=== PATIENT | male | born 1950 | race Caucasian/White ===

== ENCOUNTER 2016-12-10 08:00 | Outpatient (CLI) | payer BC | END 2016-12-10 23:59 | disposition home or self-care (01) | LOC: LAB.S 08:00 | PROVIDERS: ATTEND Internal Medicine | DX: I81 Portal vein thrombosis (principal) | CPT/HCPCS: 85610 ==

== ENCOUNTER 2016-12-12 09:21 | Outpatient (CLI) | payer BC | END 2016-12-12 09:22 | disposition home or self-care (01) | LOC: LAB.F 09:21 | PROVIDERS: ATTEND Internal Medicine | DX: I81 Portal vein thrombosis (principal) | CPT/HCPCS: 85610 ==

== ENCOUNTER 2016-12-17 10:00 | Outpatient (CLI) | payer BC | END 2016-12-17 23:59 | disposition home or self-care (01) | LOC: LAB.S 10:00 | PROVIDERS: ATTEND Internal Medicine | DX: I81 Portal vein thrombosis (principal) | CPT/HCPCS: 85610 ==

== ENCOUNTER 2016-12-21 09:08 | Outpatient (CLI) | payer BC | END 2016-12-21 09:09 | disposition home or self-care (01) | LOC: LAB.F 09:08 | PROVIDERS: ATTEND Internal Medicine | DX: I81 Portal vein thrombosis (principal) | CPT/HCPCS: 85610 ==

== ENCOUNTER 2016-12-27 09:22 | Outpatient (CLI) | payer BC | END 2016-12-27 09:23 | disposition home or self-care (01) | LOC: LAB.F 09:22 | PROVIDERS: ATTEND Internal Medicine | DX: I81 Portal vein thrombosis (principal) | CPT/HCPCS: 85610 ==

== ENCOUNTER 2017-01-03 09:49 | Outpatient (CLI) | payer BC | END 2017-01-03 09:50 | disposition home or self-care (01) | LOC: LAB.F 09:49 | PROVIDERS: ATTEND Internal Medicine | DX: I81 Portal vein thrombosis (principal) | CPT/HCPCS: 85610 ==

== ENCOUNTER 2017-01-17 08:50 | Outpatient (CLI) | payer BC | END 2017-01-17 08:51 | disposition home or self-care (01) | LOC: LAB.F 08:50 | PROVIDERS: ATTEND Internal Medicine | DX: I81 Portal vein thrombosis (principal) | CPT/HCPCS: 85610 ==

== ENCOUNTER 2017-02-07 08:32 | Outpatient (CLI) | payer BC | END 2017-02-07 08:33 | disposition home or self-care (01) | LOC: LAB.F 08:32 | PROVIDERS: ATTEND Internal Medicine | DX: I81 Portal vein thrombosis (principal) | CPT/HCPCS: 85610 ==

== ENCOUNTER 2017-03-08 08:52 | Outpatient (CLI) | payer BC | END 2017-03-08 08:53 | disposition home or self-care (01) | LOC: LAB.F 08:52 | PROVIDERS: ATTEND Internal Medicine | DX: I81 Portal vein thrombosis (principal) | CPT/HCPCS: 85610 ==

== ENCOUNTER 2017-04-08 08:00 | Outpatient (CLI) | payer BC | END 2017-04-08 08:01 | disposition home or self-care (01) | LOC: LAB.S 08:00 | PROVIDERS: ATTEND Internal Medicine | DX: I81 Portal vein thrombosis (principal) | CPT/HCPCS: 85610 ==

== ENCOUNTER 2017-05-07 09:24 | Outpatient (CLI) | payer BC | END 2017-05-07 09:25 | disposition home or self-care (01) | LOC: LAB.F 09:24 | PROVIDERS: ATTEND Internal Medicine | DX: I81 Portal vein thrombosis (principal) | CPT/HCPCS: 85610 ==

== ENCOUNTER 2017-06-04 13:14 | Outpatient (CLI) | payer BC | END 2017-06-04 13:15 | disposition home or self-care (01) | LOC: LAB.F 13:14 | PROVIDERS: ATTEND Internal Medicine | DX: I81 Portal vein thrombosis (principal) | CPT/HCPCS: 85610 ==

== ENCOUNTER 2017-07-04 09:40 | Outpatient (CLI) | payer BC | END 2017-07-04 09:41 | disposition home or self-care (01) | LOC: LAB.F 09:40 | PROVIDERS: ATTEND Internal Medicine | DX: I81 Portal vein thrombosis (principal) | CPT/HCPCS: 85610 ==

== ENCOUNTER 2017-07-25 04:34 | Outpatient (CLI) | payer BC | END 2017-07-25 04:35 | disposition short-term general hospital (02) | LOC: EMS 04:34 | PROVIDERS: ATTEND Surgery | DX: K92.0 Hematemesis (principal); Z79.01 Long term (current) use of anticoagulants | CPT/HCPCS: A0170; A0425; A0427 ==

== ENCOUNTER 2018-05-20 06:02 | Outpatient (CLI) | payer MEDICARE, BC | END 2018-05-20 06:03 | disposition short-term general hospital (02) | LOC: EMS 06:02 | PROVIDERS: ATTEND Surgery | DX: R10.9 Unspecified abdominal pain (principal) | CPT/HCPCS: A0170; A0425; A0427 ==

== ENCOUNTER 2021-01-19 10:12 | Outpatient (CLI) | payer MEDICARE, OTHER | END 2021-01-19 10:13 | disposition short-term general hospital (02) | LOC: EMS 10:12 | DX: R41.0 Disorientation, unspecified (principal); R42 Dizziness and giddiness; H53.2 Diplopia; R40.0 Somnolence | CPT/HCPCS: A0425; A0429 ==

== ENCOUNTER 2021-02-03 10:35 | Outpatient (CLI) | payer MEDICARE, OTHER ==
[2021-02-03 15:07] LABS: CALCIUM 8.6 mg/dL (8.5-10.3); CREATININE 0.8 mg/dL (0.6-1.2); POTASSIUM 4.2 mmol/L (3.5-5.0)
== END 2021-02-03 10:36 | disposition home or self-care (01) ==
LOC: LAB.S 10:35
PROVIDERS: ATTEND Internal Medicine
DX: C15.5 Malignant neoplasm of lower third of esophagus (principal); K70.31 Alcoholic cirrhosis of liver with ascites
CPT/HCPCS: 36415; 80048; 82378; 82728; 83540; 84466

== ENCOUNTER 2021-02-13 10:29 | Outpatient (CLI) | payer MEDICARE, OTHER | END 2021-02-13 10:30 | disposition short-term general hospital (02) | LOC: EMS 10:29 | DX: K92.1 Melena (principal); R53.1 Weakness; R42 Dizziness and giddiness | CPT/HCPCS: A0425; A0427 ==

== ENCOUNTER 2021-04-10 10:11 | Outpatient (CLI) | payer MEDICARE, OTHER | END 2021-04-10 10:12 | disposition short-term general hospital (02) | LOC: EMS 10:11 | DX: R10.9 Unspecified abdominal pain (principal); R11.0 Nausea; R53.1 Weakness; R26.81 Unsteadiness on feet | CPT/HCPCS: A0425; A0429 ==

== ENCOUNTER 2021-04-21 13:04 | Outpatient (CLI) | payer MEDICARE, BC | END 2021-04-21 13:05 | disposition short-term general hospital (02) | LOC: EMS 13:04 | DX: R41.82 Altered mental status, unspecified (principal) | CPT/HCPCS: A0425; A0427 ==

== ENCOUNTER 2021-05-03 08:47 | Outpatient (CLI) | payer MEDICARE, BC | END 2021-05-03 08:48 | disposition short-term general hospital (02) | LOC: EMS 08:47 | DX: R19.5 Other fecal abnormalities (principal) | CPT/HCPCS: A0425; A0427 ==

== ENCOUNTER 2021-05-09 13:57 | Outpatient (CLI) | payer MEDICARE, BC ==
[2021-05-09 20:00] LABS: BASOPHILS % (AUTO) 0.4 %; EOSINOPHILS # (AUTO) 0.3 10^3/uL (0.0-0.7); EOSINOPHILS % (AUTO) 6.2 %; HCT - HEMATOCRIT 28.9 % (42.0-52.0); HGB - HEMOGLOBIN 8.7 g/dL (14.0-18.0); LYMPHOCYTES # (AUTO) 0.3 10^3/uL (1.5-3.5); LYMPHOCYTES % (AUTO) 5.3 %; MEAN CORPUSCULAR HEMOGLOBIN 24.8 pg (27.0-31.0); MEAN CORPUSCULAR HGB CONC 30.1 g/dL (32.0-36.0); MEAN CORPUSCULAR VOLUME 82.3 fL (80.0-94.0); MEAN PLATELET VOLUME 10.1 fL (7.4-11.4); MONOCYTES # (AUTO) 0.9 10^3/uL (0.0-1.0); NEUTROPHILS # (AUTO) 3.6 10^3/uL (1.5-6.6); NEUTROPHILS % (AUTO) 70.7 %; PLT - PLATELET COUNT 143 10^3/uL (130-450); RED BLOOD COUNT 3.51 10^6/uL (4.70-6.10); RED CELL DISTRIBUTION WIDTH 19.2 % (12.0-15.0); WHITE BLOOD COUNT 5.1 x10^3/uL (4.8-10.8)
[2021-05-09 20:26] LABS: ALBUMIN 2.6 g/dL (3.2-5.5); ALBUMIN/GLOBULIN RATIO 0.7 (1.0-2.2); BILIRUBIN,TOTAL 1.2 mg/dL (0.2-1.0); CALCIUM 8.3 mg/dL (8.5-10.3); CREATININE 1.2 mg/dL (0.6-1.2); POTASSIUM 3.7 mmol/L (3.5-5.0); TOTAL PROTEIN 6.4 g/dL (6.7-8.2)
== END 2021-05-09 13:58 | disposition home or self-care (01) ==
LOC: LAB.S 13:57
PROVIDERS: ATTEND Internal Medicine
DX: C15.9 Malignant neoplasm of esophagus, unspecified (principal); K70.31 Alcoholic cirrhosis of liver with ascites; C15.5 Malignant neoplasm of lower third of esophagus
CPT/HCPCS: 36415; 80053; 85025

== ENCOUNTER 2021-05-15 14:22 | Outpatient (CLI) | payer MEDICARE, BC | END 2021-05-15 23:59 | disposition short-term general hospital (02) | LOC: EMS 14:22 | DX: R10.9 Unspecified abdominal pain (principal) | CPT/HCPCS: A0425; A0427 ==

== ENCOUNTER 2021-05-25 13:30 | Outpatient (CLI) | payer MEDICARE, BC ==
--- NOTE | 2021-05-25 17:34 | CONSULTATION NOTE ---
Palliative Care Consultation - Referral Referring Provider: Dr. Reinoso/Dr. Julio C Richter Time of Visit: [id number] Referral setting: Home Referral Reason: Alcoholic Cirrohosis/Esophageal adenocarcinoma/Muscle Weakness/Goals of Car - Information Sources Records reviewed: Previous records reviewed History/Review of Systems obtained from: Patient, Family ( Mariana present) Exam limitations: Clinical condition (patient very fatigued) - History of Present Illness Brief History of Present Illness: This is a 71-year-old gentleman who has had a significant ongoing decline of his functional status over the last several months, and more acutely over the last several weeks. He was hospitalized at [facility] from 05/03-05/07 for recurrent GI bleeding, with a diagnosis of RLE DVT, and placement of IVC filter on 05/05. Patient was found to have evidence of a portal vein thrombosis, but was not a candidate for anticoagulation. Patient had previously been admitted 04/21-04/25 with hepatic encephalopathy, slow GI bleed at that time, with worsening anemia. Throughout this patient has had recurrent ascites, needing paracentesis either acutely or on outpatient basis every 2 weeks. Patient's last paracentesis was Saturday previous to discharge on 1115. Patient does have recurrent fluid currently, is soft but still full. Patient gets intermittent hiccups and belching with this. Patient continues with hypotension, weakness, has been mostly bedbound since he came home yesterday from oncology appointment. In review of status patient is quite weak, most likely dehydrated, with poor oral intake related both to energy, anorexia, and early satiety. Patient has had ongoing weight loss currently weighs 156.8, with loss of muscle mass from his baseline weight of 2 10-2 20. Patient is feeling quite weak and dizzy, has been running low blood pressures, in the context of this has not been able to take his diuretics. Today's blood pressure is 92/50. Patient has been hospitalized almost monthly through this last year. Patient has known lower esophageal adenocarcinoma. He was treated with definitive chemoradiation therapy, completed on 07/21/2019. He is currently on active surveillance for this, had an EGD 04/23/2021 with known esophageal to this esophageal stenosis, erythematous mucosa in the gastric body and atrium. Has had difficulty with his kidney function, has known cirrhosis with history of varices. He is on lactulose and rifaximin mean.He was told he was not a candidate for Pleurx, In his records they do have a documented meld score of 10. He has recently received transfusion during the hospital, and has struggled with metabolic imbalances as well. Today I am seeing patient, he has been in bed since yesterday mostly, increasing weakness difficulty walking needs assistance sit from sit to stand. Does complain of some dizziness. Has had very little take in. Did receive some IV fluids yesterday. Does not present with any lower extremity edema, lungs are diminished in the bases. He appears quite cachectic and chronically ill. He is scheduled for repeat paracentesis on Saturday, weekly visits with Dr. Richter on labs. Patient is able to identify he has been in decline. Unfortunately when he has been hospitalized at [facility] his Mariana has not been able to accompany him so unclear about the extent of conversations. My understanding is he has had some conversation with palliative care and has been introduced to hospice. They have not had any of these conversations, though patient has been a DO NOT RESUSCITATE when he has been hospitalized.Has been difficult for them to continue with visits to [facility], particularly with the worsening ferr schedule. They have transition there apparently Dr. Richter, are awaiting home health referral, and introduced to palliative care today. Medical/Surgical History - Past Medical History Cardiovascular: reports: Hypertension, Deep vein thrombosis (RLE), Other (portal vein thrombosis) Neuro: Tremors GI: reports: GERD, Esophageal varices, GI bleed (has been receiving IV iron transfusions), Colon polyps, Cirrhosis, Other (barretts esophagus) HEENT: reports: Chronic vision loss Psych: reports: Depression, Anxiety Musculoskeletal: reports: Fatigue - Past Surgical History General: reports: Colonoscopy, EGD Ortho: reports: Hip replacement HEENT: reports: Cataracts - Substance History Use: Uses substance without health or social issues: Tobacco (former smoker), Alcohol (sober) Social History - Living Situation Living arrangement: At home Living Situation: With spouse/s.o. Support System: Patient lives at home with his Mariana, they have been for 25 years. 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 He has 3 sons, 1 in [place], who is presently visiting, 1 from [place], and one from [place]. They have 2 dogs, who are rescue dogs in the [place] They have currently been doing some remodeling and support. Patient does not have any medical equipment currently. Family History - Family History Family History: Mother: (pneumonia), Cancer (colon; sister ovarian and breast 44), CVA/TIA, Father: , Sister: , Cancer Medications/Allergies - Medications Home Medications: Ambulatory Orders Medication Instructions Recorded Confirmed Lactulose 30 ml PO TID 05/25/21 05/25/21 Melatonin 10 mg PO QPM PRN 05/25/21 05/25/21 Multivitamin 1 tab PO DAILY 05/25/21 05/25/21 Omeprazole 40 mg PO BID 05/25/21 05/25/21 Simvastatin [Zocor] 20 mg PO DAILY 05/25/21 05/25/21 Sucralfate [Carafate] 1 gm PO QID 05/25/21 05/25/21 Tamsulosin [Flomax] 0.4 mg PO DAILY 05/25/21 05/25/21 hydrOXYzine pamoate [Hydroxyzine 25 mg PO QPM PRN 05/25/21 05/25/21 Pamoate] nadoloL [Corgard] 10 mg PO DAILY 05/25/21 05/25/21 rifAXIMin [Xifaxan] 550 mg PO BID 05/25/21 05/25/21 - Allergies Allergies/Adverse Reactions: Allergies Allergy/AdvReac Type Severity Reaction Status Date / Time No Known Drug Allergies Allergy Verified 05/25/21 19:48 Review of Systems - Constitutional Constitutional: reports: Fatigue (worsening), Weakness, Poor appetite, Weight loss (156) - Eyes Eyes: reports: Vision loss, Corrective lenses - Ears, Nose & Throat Ears, Nose & Throat: reports: Dry mouth - Cardiovascular Cardiovascular: reports: Lightheadedness, Exertional dyspnea, Decr. exercise tolerance. denies: Edema - Respiratory Respiratory: reports: SOB at rest, SOB with exertion. denies: Cough - Gastrointestinal Gastrointestinal: reports: Abdominal distention, Diarrhea, Nausea (occ), Reflux/heartburn, Poor appetite, Early satiety - Genitourinary Genitourinary: reports: Incontinence - Musculoskeletal Musculoskeletal: reports: Muscle pain, Muscle aches, Stiffness, Limited range of motion, Muscle weakness, Assistive devices (has cane; needs walker) Physical Exam - Vital Signs Temperature: 97.2 C Pulse Rate: 76 Respiratory Rate: 18 (22 with activity) O2 Saturation: 98 Blood Pressure: 92/50 - Physical Exam General Appearance: positive: Alert, Anxious, Cachetic Eyes Bilateral: positive: Normal inspection, No scleral icterus ENT: positive: Dry mucous membranes Neck: positive: Trachea midline Cardiovascular: positive: Regular rate & rhythm Respiratory: positive: Diminished in bases. negative: Wheezes Abdomen: positive: Nml bowel sounds, Tenderness, Distended. negative: Mass Skin: positive: Pallor, Dryness. negative: Jaundice Extremities: positive: No pedal edema Neurologic/Psychiatric: positive: Oriented x3, Weakness, Depressed mood/affect, Flat affect Palliative Care - POLST Patient has POLST: Yes POLST Status: DNR, Selective Treatment (completed at visit) Pain: Pain unchanged, Location (abdominal discomfort and back discomfort with sitting/moving; none at rest) Tiredness/Fatigue: Severe (7-10) Drowsiness/Sedation: Moderate (4-6) (taking "naps" through the day) Nausea: Mild (1-3) Anorexia: Severe (7-10), Weight loss Dyspnea: Severe (7-10) (with activity) Depression: Moderate (4-6) Anxiety: Moderate (4-6) Feelings of wellbeing/Perceived Quality of Life: Poor, Worsening Sleep: Variable sleep pattern Constipation: No, Comment (Patient is on lactulose with the goal for 2-3 soft BMs daily; has had increasing incontinence would benefit from a commoded) Performance Status: Patient is continued to have functional decline, most acutely since March/April. Patient is needing maximum assist from getting to sitting to standing, assistance to ambulating to the bathroom. He does not have any equipment, recommended hospital bed, commode, walker, and wheelchair. Patient has upper and lower extremity muscle wasting, has had 2 prolonged hospitalizations and continues to struggle with dizziness and remains high risk for falls - Palliative Care Discussion: Patient is somewhat reluctant to share his current understanding of his illness. He does acknowledge he has had continued functional decline, needing increased help at home, and very discouraged with multiple hospitalizations. He has needed ongoing taps every 7 to 10 days, is on surveillance for his cancer treatment, but is notably declining functionally. He has been a do not attempt resuscitation when hospitalized. In review with both his and patient, he reports he has not had a palliative care consultation. They do have healthcare directives, but has not discussed or completed a POLST. Given his frailty, increased risk for falls, recommended we complete the goals of care conversation and POLST at this visit. Counseling provided regarding the role of palliative care, in the context of holding him in the "twilight zone". Patient most likely does have poor prognosis in the context of his ongoing functional decline, frequent paracentesis, weight loss, high symptom burden and continued intermittent GI bleeds. Patient is tiring of being in the hospital, at [facility] is unable to have family present and is quite isolated. This is been difficult for both of them with his last hospitalizations. We did discuss though in the context of the continuum of care hospice is focus on comfort only, no further hospitalizations are interventions such as blood products, iron transfusions. Reviewed often transition to hospice either has to do with patient's physical decline with limited treatment options, or patient's choice to focus on comfort only. Patient at this point in time goals are to return to some level of independence and physical functioning, continue paracentesis and blood product support, but would like to avoid hospitalization we did discuss at end-of-life he would like to be home, Mariana was part of her mother's process of end-of-life, but is feeling overwhelmed by his increasing care needs. POLST was completed with DN AR/DNI and selective treatments. Weighing benefits of treatment in the context of quality of life, treating reversible conditions, but not extending suffering. Spoke with separately. Reports patient is very reluctant to talk about his impending decline. He does have 3 sons, did encourage them to come spend time with her father, patient if continues on this path most likely has weeks to months not years.She reports this is been really difficult, reports patient has many regrets and is very close to the chest about sharing recognizing the consequences of his decisions and drinking. 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 Patient presents with failure to thrive, goals palliative in nature, increasing care needs, and struggling with current quality of life. Palliative care providing support regarding symptom burden, psychosocial support, anticipatory guidance, and transition to hospice when alignment with goals Recommendations/Counseling Done: 1. Muscle weakness. Patient with notable functional decline particularly over the last few weeks, will order home health for strengthening, transfer training, caregiver training, and further recommendations for equipment. Will order h [facility]spital bed from [facility], commode, and walker. Reviewed most likely only walker covered by Medicare, recommended follow-up with local [facility] for wheelchair. Recommended baby monitor to be able to call for assistance if needed. 2. Ascites in the setting of cirrhosis. Patient has had recurrent ascites requiring paracentesis at least every 7 to 10 days. Patient working with o ncology to set up scheduled paracentesis, though patient aware this is complicated in the context of metabolic issues including ongoing loss of albumin. Patient reports there have been conversations but is not a candidate for Pleurx catheter. Is followed by GI at [facility] as well. 3. Depression. Patient expressing continued loss of independence, dependence on his . Patient can acknowledge continued decline, is hoping for some stabilization though has been a very difficult year. Patient with persistent hyponatremia, would not be a candidate for an SSRI currently, patient also with recurrent MONET, will continue to monitor and consider atypical particularly in the setting of his anorexia and weight loss, may trial mirtazapine. 4. Lower esophageal adenocarcinoma. Patient has been treated with definitive chemoradiation, has been receiving EGD for monitoring, noted in record 04/23/2021 EGD showed without clear mass-effect but "mucosa in the distal esophagus still injured enough that cannot rule out residual tumor". 5. Esophageal varices. Patient has had recurrent upper GI bleed due to severe esophagitis, attributed to late effects of radiation and ulceration. Patient c urrently on PPI and sucralfate, receiving transfusions for symptomatic anemia. 6. Advanced care planning. Patient presents with concern regarding ongoing functional decline, frequent hospitalizations, and high symptom burden. Patient is growing weary of hospitalizations, have been traumatic for both patient and . Is transitioning care over to [facility] met with Dr. Richter yesterday, felt this was a positive move. He will see him on a regular basis for ongoing labs and monitoring. Patient's short-term goals are to regain some independence, though do need to increase support to be able to manage at home. Will order PT/OT and home health aide as well as DISBURSING OFFICER to help with increased support and respite for . POLST was completed, as well as education regarding continuum of care of palliative versus hospice. Patient seen [id number]. It is a taxing considerable effort for the patient to leave the home, patient requires physical therapy for home safety eval, fall prevention, fall recovery, and strengthening program. OT for ADL management, recommendations, bathing support, and equipment recommendations. Home health aide for bathing, and this DISBURSING OFFICER for community resourcing and counseling for adjustment to illness. 90 minutes with greater than 50% of this done in counseling regarding symptom management, anticipatory guidance, continuum of care, advanced care planning, and care coordination.
== END 2021-05-25 13:31 | disposition home or self-care (01) ==
LOC: PC 13:30
PROVIDERS: ATTEND Nurse Practitioner Adult Health
DX: Z51.5 Encounter for palliative care (principal); Z87.891 Personal history of nicotine dependence; F10.21 Alcohol dependence, in remission; M62.81 Muscle weakness (generalized); K70.31 Alcoholic cirrhosis of liver with ascites; F32.A Depression, unspecified; C15.5 Malignant neoplasm of lower third of esophagus; I85.10 Secondary esophageal varices without bleeding; Z66 Do not resuscitate
CPT/HCPCS: 99345

== ENCOUNTER 2021-05-26 11:42 | Outpatient (CLI) | payer MEDICARE, BC | END 2021-05-26 11:43 | disposition critical access hospital (66) | LOC: EMS 11:42 | DX: R53.1 Weakness (principal); R41.0 Disorientation, unspecified | CPT/HCPCS: A0425; A0427 ==

== ENCOUNTER 2021-05-26 12:20 | Emergency (ER) | payer MEDICARE, BC ==
[2021-05-26] MEDS ORDERED: SODIUM CHLORIDE 0.9% 1,000 ML IV STA ×3 (13:02→17:56)
--- NOTE | 2021-05-26 13:06 | ED Physician Documentation ---
History of Present Illness - Stated complaint Stated Complaint: WEAKNESS - Chief complaint Chief Complaint: General - History obtained from History obtained from: Patient, EMS - History of Present Illness Timing: Today - Additonal information Additional information: 71-year-old male with end-stage liver disease with cirrhosis and ascites varices and distal esophageal cancer has been getting his care at [facility] in [place] and has been in and out of the hospital most of the months of April and May. He had a cough palliative care consultation and is beginning to set up hospice for next week. This morning he is less responsive. He tells me that he cannot move. He seems to be mentating adequately. Review of Systems Constitutional: denies: Fever Eyes: denies: Decreased vision Ears: denies: Ear pain Nose: denies: Congestion Throat: denies: Sore throat Cardiac: denies: Chest pain / pressure, Palpitations Respiratory: denies: Dyspnea, Cough GI: denies: Abdominal Pain, Nausea, Vomiting, Constipation, Diarrhea : denies: Dysuria, Frequency Skin: denies: Rash Musculoskeletal: denies: Neck pain, Back pain, Extremity pain, Extremity swelling Neurologic: reports: Generalized weakness, Confused, Altered mental status. denies: Focal weakness, Numbness PD PAST MEDICAL HISTORY - Past Medical History Cardiovascular: Hypertension, Deep vein thrombosis (RLE), Other (portal vein thrombosis) Neuro: Tremors GI: GERD, Esophageal varices, GI bleed (has been receiving IV iron transfusions), Colon polyps, Cirrhosis, Other (barretts esophagus) HEENT: Chronic vision loss Psych: Depression, Anxiety Musculoskeletal: Fatigue - Past Surgical History General: Colonoscopy, EGD Ortho: Hip replacement HEENT: Cataracts - Present Medications Home Medications: Ambulatory Orders Medication Instructions Recorded Confirmed Lactulose 30 ml PO TID 05/25/21 05/26/21 Melatonin 10 mg PO QPM PRN 05/25/21 05/26/21 Multivitamin 1 tab PO DAILY 05/25/21 05/26/21 Omeprazole 40 mg PO BID 05/25/21 05/26/21 Simvastatin [Zocor] 20 mg PO DAILY 05/25/21 05/26/21 Sucralfate [Carafate] 1 gm PO QID 05/25/21 05/26/21 Tamsulosin [Flomax] 0.4 mg PO DAILY 05/25/21 05/26/21 hydrOXYzine pamoate [Hydroxyzine 25 mg PO QPM PRN 05/25/21 05/26/21 Pamoate] nadoloL [Corgard] 10 mg PO DAILY 05/25/21 05/26/21 rifAXIMin [Xifaxan] 550 mg PO BID 05/25/21 05/26/21 - Allergies Allergies/Adverse Reactions: Allergies Allergy/AdvReac Type Severity Reaction Status Date / Time No Known Drug Allergies Allergy Verified 05/26/21 12:35 - POLST Patient has POLST: Yes PD ED PE NORMAL - Vitals Vital signs reviewed: Yes (hypotensive ) - General General: Other (frail appearing thin male with parched lips prefers to lay with eyes closed. Moves slowly ) - HEENT HEENT: Atraumatic, PERRL, EOMI, Other (dry mucous membranes ) - Neck Neck: Supple, no meningeal sign, No bony TTP - Cardiac Cardiac: RRR, No murmur - Respiratory Respiratory: No respiratory distress, Clear bilaterally - Abdomen Abdomen: Other (The abdomen is distended with ascites and there is a caput present. There is no specific tenderness.) - Back Back: No CVA TTP, No spinal TTP - Derm Derm: Normal color, Warm and dry, No rash - Extremities Extremities: No deformity, No edema - Neuro Neuro: Alert and oriented X 3, route delivery service driver 2-12 intact, No motor deficit, No sensory deficit, Other (speech is quite) Eye Opening: To Voice Motor: Obeys Commands Verbal: Oriented GCS Score: 14 Results - Vitals Vitals: Vital Signs - 24 hr 05/26/21 05/26/21 05/26/21 12:30 14:46 16:29 Temperature 36.4 C L Heart Rate 71 71 72 Respiratory 12 10 L 10 L Rate Blood Pressure 88/57 L 84/54 L 90/56 L O2 Saturation 98 98 100 05/26/21 18:00 Temperature Heart Rate 82 Respiratory 12 Rate Blood Pressure 92/60 O2 Saturation 100 Oxygen O2 Source Room air - Labs Labs: Laboratory Tests 05/26/21 05/26/21 05/26/21 14:25 14:25 14:25 WBC RBC Hgb Hct MCV MCH MCHC RDW Plt Count MPV Neut # (Auto) Lymph # (Auto) Trego # (Auto) Eos # (Auto) Baso # (Auto) Absolute Nucleated RBC Nucleated RBC % Manual Slide Review WBC Morphology Platelet Estimate Platelet Morphology RBC Morph Micro Appear PT INR Sodium 129 L Potassium 4.8 Chloride 103 Carbon Dioxide 16 L Anion Gap 10.0 BUN 62 H Creatinine 1.4 H Estimated GFR (MDRD) 50 L Glucose 106 H Lactic Acid 1.4 Calcium 8.3 L Total Bilirubin 1.9 H AST 54 H ALT 44 Alkaline Phosphatase 200 H Ammonia 11.5 Total Protein 6.0 L Albumin 2.7 L Globulin 3.3 Albumin/Globulin Ratio 0.8 L Lipase 38 05/26/21 05/26/21 15:15 15:15 WBC 5.3 RBC 3.37 L Hgb 9.4 L Hct 31.1 L MCV 92.3 MCH 27.9 MCHC 30.2 L RDW 27.0 H Plt Count 143 MPV 10.1 Neut # (Auto) 4.4 Lymph # (Auto) 0.2 L Trego # (Auto) 0.7 Eos # (Auto) 0.0 Baso # (Auto) 0.0 Absolute Nucleated RBC 0.00 Nucleated RBC % 0.0 Manual Slide Review Indicated WBC Morphology NORMAL APPEARANCE Platelet Estimate NORMAL (130-450,000) Platelet Morphology NORMAL APPEARANCE RBC Morph Micro Appear 2+ HYPOCHROMASIA PT 15.5 H INR 1.4 H Sodium Potassium Chloride Carbon Dioxide Anion Gap BUN Creatinine Estimated GFR (MDRD) Glucose Lactic Acid Calcium Total Bilirubin AST ALT Alkaline Phosphatase Ammonia Total Protein Albumin Globulin Albumin/Globulin Ratio Lipase Procedures - IVC sono (time) 1300 Bedside IVC sono: IVC measures (cm) (0.66), Profound dehydration (est 3 liter deficit) PD MEDICAL DECISION MAKING - ED course Complexity details: reviewed results, re-evaluated patient, considered differential, d/w patient ED course: 71-year-old male with cirrhosis ascites and varices has been in and out of the hospital with draining of his ascites treatment of his varices transfusion and he has now on palliative care. Today comes into the emergency department less responsive and unable to move. I was able to use the bedside ultrasound to interrogate the inferior vena cava and found it to be a tiny vein indicating 3 L deficit and likely the reason for the patient's downturn. He did get intravenous fluids several days ago felt improved does know how much he got. The patient has steady improvement with each liter of fluid administered. He is found talking easily with his eyes open and smiling. I did speak to the patient and his son regarding the nature of the dehydration and he has already been taken off of his diuretics. He has had some fluid shifts related to removal of large volume paracentesis. I have indicated to the patient he may at some point need to be back on his diuretics. We discussed the goals of palliative care today and the son is willing to take the patient home. Departure - Departure Disposition: 01 Home, Self Care Clinical Impression: Dehydration Instructions: ED Dehydration Follow-Up: Paolo Santos MD [Primary Care Provider] - Daisy Macario ARNP [Provider Admit Priv/Credential] -
[2021-05-26 14:55] LABS: ALBUMIN 2.7 g/dL (3.2-5.5); ALBUMIN/GLOBULIN RATIO 0.8 (1.0-2.2); BILIRUBIN,TOTAL 1.9 mg/dL (0.2-1.0); CALCIUM 8.3 mg/dL (8.5-10.3); CREATININE 1.4 mg/dL (0.6-1.2); POTASSIUM 4.8 mmol/L (3.5-5.0)
[2021-05-26 15:20] LABS: BASOPHILS % (AUTO) 0.2 %; HCT - HEMATOCRIT 31.1 % (42.0-52.0); HGB - HEMOGLOBIN 9.4 g/dL (14.0-18.0); LYMPHOCYTES # (AUTO) 0.2 10^3/uL (1.5-3.5); LYMPHOCYTES % (AUTO) 2.8 %; MEAN CORPUSCULAR HEMOGLOBIN 27.9 pg (27.0-31.0); MEAN CORPUSCULAR HGB CONC 30.2 g/dL (32.0-36.0); MEAN CORPUSCULAR VOLUME 92.3 fL (80.0-94.0); MEAN PLATELET VOLUME 10.1 fL (7.4-11.4); MONOCYTES # (AUTO) 0.7 10^3/uL (0.0-1.0); MONOCYTES % (AUTO) 13.4 %; NEUTROPHILS # (AUTO) 4.4 10^3/uL (1.5-6.6); PLT - PLATELET COUNT 143 10^3/uL (130-450); RED BLOOD COUNT 3.37 10^6/uL (4.70-6.10); WHITE BLOOD COUNT 5.3 x10^3/uL (4.8-10.8)
[2021-05-26 15:28] LABS: SLIDE REVIEW? Indicated
[2021-05-26 15:30] LABS: INR 1.4 (0.8-1.2); PT - PROTHROMBIN TIME 15.5 secs (9.9-12.6)
[2021-05-26 15:52] LABS: PLATELET ESTIMATE, MANUAL NORMAL (130-450,000) (NORMAL); PLATELET MORPHOLOGY NORMAL APPEARANCE (NORMAL); WBC MORPHOLOGY (MULTIPLE) NORMAL APPEARANCE (NORMAL)
[2021-05-26 18:26] VITALS: BP 92/60
[2021-05-26 19:15] LABS: BILIRUBIN,URINE NEGATIVE (NEGATIVE); GLUCOSE, URINE (UA) NEGATIVE (NEGATIVE); KETONES,URINE (UA) NEGATIVE (NEGATIVE); LEUKOCYTE ESTERASE, URINE NEGATIVE (NEGATIVE); NITRITE,URINE NEGATIVE (NEGATIVE); OCCULT BLOOD,URINE NEGATIVE (NEGATIVE); PH,URINE 5.5 PH (5.0-7.5); PROTEIN,URINE NEGATIVE (NEGATIVE); UROBILINOGEN,URINE 0.2 (NORMAL) E.U./dL (NORMAL)
[2021-05-26 19:16] LABS: CLARITY,URINE CLEAR (CLEAR)
== END 2021-05-26 19:29 | disposition home or self-care (01) ==
LOC: EDUNIT# → ED 12:20
DX: E86.0 Dehydration (principal); Z86.718 Personal history of other venous thrombosis and embolism
CPT/HCPCS: 36415; 80053; 81001; 81003; 82140; 83605; 83690; 85025; 85610; 87086; 96360; 96361; 99282

== ENCOUNTER 2021-05-28 22:51 | Outpatient (CLI) | payer MEDICARE, BC | END 2021-05-28 22:52 | disposition E | LOC: EMS 22:51 | DX: I46.9 Cardiac arrest, cause unspecified (principal) ==